=== PATIENT | female | born 1965 | race Caucasian/White ===

== ENCOUNTER 2019-12-05 22:12 | Emergency (ER) | payer SELFPAY ==
[2019-12-05 22:47] LABS: HEMATOCRIT 42.6 % (36.0-47.0); HEMOGLOBIN 14.3 g/dL (12.0-15.5); MEAN CORPUSCULAR HEMOGLOBIN 28.1 pg (27.0-33.4); MEAN CORPUSCULAR HGB CONC 33.6 g/dL (32.0-36.0); MEAN CORPUSCULAR VOLUME 84 fl (80-97); PLATELET COUNT 306 10^3/uL (150-450); RED BLOOD COUNT 5.09 10^6/uL (3.72-5.28); RED CELL DISTRIBUTION WIDTH 14.1 % (11.5-14.0); WHITE BLOOD COUNT 24.4 10^3/uL (4.0-10.5)
[2019-12-05 23:04] LABS: ALBUMIN 3.9 g/dL (3.5-5.0); ALKALINE PHOSPHATASE 100 U/L (38-126); ANION GAP 14 (5-19); ASPARTATE AMINO TRANSFERASE 24 U/L (14-36); BILIRUBIN,DIRECT 0.3 mg/dL (0.0-0.4); BILIRUBIN,TOTAL 0.4 mg/dL (0.2-1.3); BLOOD UREA NITROGEN 16 mg/dL (7-20); CALCIUM 9.5 mg/dL (8.4-10.2); CARBON DIOXIDE 24 mmol/L (22-30); CHLORIDE 99 mmol/L (98-107); CREATINE KINASE 71 U/L (30-135); GLUCOSE 173 mg/dL (75-110); TOTAL PROTEIN 7.2 g/dL (6.3-8.2)
[2019-12-05 23:06] LABS: ABSOLUTE MONOCYTES # (MANUAL) 0.2 10^3/uL (0.1-1.4); ANISOCYTOSIS SLIGHT; BAND NEUTROPHILS % (MANUAL) 1 % (3-5); BASOPHILS % (MANUAL) 0 % (0-2); EOSINOPHILS % (MANUAL) 0 % (0-6); LYMPHOCYTES % (MANUAL) 8 % (13-45); MONOCYTES % (MANUAL) 1 % (3-13); PLATELET COMMENT ADEQUATE; SEGMENTED NEUTROPHILS % (MAN) 90 % (42-78); TOTAL CELLS COUNTED 100
[2019-12-05 23:12] LABS: CREATINE KINASE MB 0.82 ng/mL (<4.55)
[2019-12-05 23:15] LABS: TROPONIN I 0.022 ng/mL
--- NOTE | 2019-12-05 23:52 | RADIOLOGY REPORT (SQ) ---
EXAM DESCRIPTION: CT HEAD WITHOUT IV CONTRAST COMPLETED DATE/TME: 12/05/2019 00:00 CLINICAL HISTORY: 54 years, Female, fall/headache COMPARISON: None. TECHNIQUE: EXAM DESCRIPTION: CLINICAL HISTORY: fall/headache COMPARISON: None Available TECHNIQUE: Contiguous axial CT images of the head were obtained. Coronal and sagittal reconstructions were created from the axial data. This exam was performed according to our departmental dose-optimization program, which includes automated exposure control, adjustment of the mA and/or kV according to patient size and/or use of iterative reconstruction technique. FINDINGS: Moderate mucosal thickening involves the left maxillary sinus, which contains a fluid level. Mildly displaced fracture of the right nasal bone is of indeterminate acuity. Correlation with exam and history is recommended. There is no evidence of acute mass, mass effect, midline shift or hemorrhage. The ventricles and extra-axial CSF spaces are unremarkable. The brain parenchyma appears normal for the patient's age. No other acute abnormalities of the bones is seen. IMPRESSION: Paranasal sinus disease. Probable acute paranasal sinusitis. Right nasal bone fracture. No other acute intracranial abnormality.
[2019-12-06 00:01] LABS: A TYPE INFLUENZA AG NEGATIVE (NEGATIVE); B INFLUENZA AG NEGATIVE (NEGATIVE)
--- NOTE | 2019-12-06 00:14 | ER Document Report ---
Entered by SHANEKA FULTON SCRIBE 12/05/19 [id number] Acting as scribe for:GM LOCK DO ED General - General Chief Complaint: Fainting Stated Complaint: FAINTING Time Seen by Provider: 12/05/19 22:57 Information source: Patient, Relative - Son Notes: 54-year-old female presents with son to the emergency department via EMS after 3 syncope episodes that began 3 hours ago. Patient explained that she has not been feeling well and was diagnosed two weeks ago with the flu at the Urgent Care. Patient stated that she was prescribed Tamiflu but was not able to pay for it so she "just took a week off of work". Patient stated that she went back to work 5 days ago and still was not feeling well. After patient passed out twice, son called EMS. Patient's son said that patient passed out for the third time while he was on the phone with EMS. Patient reports "maybe hitting the cabinet during one of them". Patient describes that she is feeling burning down legs, "the burning sensation goes all the way up to my neck and skin". Patient said that she vomited after third syncope episode. Patient reports cough, congestion, rhinorrhea and vomiting. Patient denies dizziness, dysuria, hematuria and lightheadedness. - Related Data Allergies/Adverse Reactions: No Known Allergies Allergy (Unverified 12/06/19 00:47) Past Medical History - General Information source: Patient, Relative - Son - Social History Smoking Status: Current Every Day Smoker Cigarette use (# per day): Yes Chew tobacco use (# tins/day): No Lives with: Family Family History: Reviewed & Not Pertinent - Medical History Medical History: Negative Past Surgical History: Reports: Hx Oral Surgery - [place] teeth Review of Systems - Review of Systems Constitutional: No symptoms reported EENT: See HPI, Nose congestion, Nose discharge Cardiovascular: See HPI, Syncope. denies: Dizziness, Lightheaded Respiratory: See HPI, Cough Gastrointestinal: See HPI, Vomiting Genitourinary: See HPI. denies: Dysuria, Hematuria Female Genitourinary: No symptoms reported Musculoskeletal: No symptoms reported Skin: No symptoms reported Hematologic/Lymphatic: No symptoms reported Neurological/Psychological: No symptoms reported -: Yes All other systems reviewed and negative Physical Exam - Vital signs Vitals: Resp 21 H 12/05/19 22:25 - Notes Notes: General: Alert, appears well. HEENT: Normocephalic. Atraumatic. PERRL. Extraocular movements intact. Poor dentition. Dry mucous membranes. Erythema in pharynx. Neck: Supple. Non-tender. Respiratory: No respiratory distress. Clear and equal breath sounds bilaterally. Cardiovascular: Tacycardic. Abdominal: Diffusely mild tenderness to palpation. No distension. Normal Bowel Sounds. Obese. Back: No gross abnormalities. Extremities: Moves all four extremities. Upper extremities: Normal inspection. Normal ROM. Lower extremities: Normal inspection. No edema. Normal ROM. Neurological: Normal cognition. AAOx4. Normal speech. Psychological: Normal affect. Normal Mood. Skin: Warm. Dry. Normal color. Course - Re-evaluation Re-evalutation: 12/06/19 03:23 MDM 54 year old with productive cough and febrile illness. Right base looks a bit congested to me but read as normal. Will dispense antibiotics due to productive cough and elevated wbc count with bronchitis vs RLL pneumonia. Discussed smoking cessation and she expressed understanding. Heart rate is into 90's. No fever and lactic repeat is normal. - Vital Signs Vital signs: Temp Pulse Resp BP Pulse Ox 98.6 F 136 H 22 H 101/57 L 98 12/06/19 03:47 12/05/19 22:32 12/06/19 03:47 12/06/19 03:47 12/06/19 03:47 - Laboratory Result Diagrams: 12/05/19 22:34 12/05/19 22:34 Laboratory results interpreted by me: 12/05/19 12/05/19 12/05/19 22:34 22:34 23:53 WBC 24.4 H RDW 14.1 H Seg Neuts % (Manual) 90 H Band Neutrophils % 1 L Lymphocytes % (Manual) 8 L Monocytes % (Manual) 1 L Abs Neuts (Manual) 22.2 H Sodium 136.5 L Glucose 173 H Lactic Acid 2.6 H - Diagnostic Test Radiology reviewed: Image reviewed, Reports reviewed - EKG Interpretation by Me EKG shows normal: Sinus rhythm Rate: Tachycardia Rhythm: NSR - Sinus Tachy Nl axis [address] elevation or depression my interpreation Discharge - Discharge Clinical Impression: CAP (community acquired pneumonia) Qualifiers: Laterality: right Lung location: lower lobe of lung Qualified Code(s): J18.9 - Pneumonia, unspecified organism Condition: Good Disposition: HOME, SELF-CARE Instructions: Cough Suppressant & Expectorant Medications, Dehydration ([facility]), Family Physicians / Practices, Pneumonia ([facility]), Stop Smoking ([facility]) Additional Instructions: Rest, No work 3/3 or 3/4. Stop smoking. Take the antibiotics as directed. Please return here for any problems or any concerns. Your blood sugar was elevated a bit. Have this rechecked. Finish the antibiotics. Prescriptions: Benzonatate [Tessalon Perles 100 mg Capsule] 200 mg PO Q8HP PRN #40 capsule PRN Reason: Cephalexin Monohydrate [Keflex 500 mg Capsule] 500 mg PO TID #30 capsule Ondansetron [Zofran Odt 4 mg Tablet] 1 - 2 tab PO Q4H PRN #15 tab.rapdis PRN Reason: For Nausea/Vomiting Forms: Smoking Cessation Education, Return to Work I personally performed the services described in the documentation, reviewed and edited the documentation which was dictated to the scribe in my presence, and it accurately records my words and actions.
[2019-12-06] MEDS ORDERED: CEFTRIAXONE 1 GM/D5W RTU 1 GM/50 ML RTUPB IV ONE (00:45)
[2019-12-06] MEDS: NORMAL SALINE 1000 ML 1,000 ML IV PRN ×2 (01:02→02:17)
[2019-12-06] MEDS ORDERED: ACETAMINOPHEN 325 MG TABLET PO ONE (01:38)
--- NOTE | 2019-12-06 02:32 | RADIOLOGY REPORT (SQ) ---
EXAM DESCRIPTION: XR CHEST 1 VIEW COMPLETED DATE/TME: 12/06/2019 00:46 CLINICAL HISTORY: 54 years, Female, fever COMPARISON: None. NUMBER OF VIEWS: 1 TECHNIQUE: Portable chest LIMITATIONS: None. FINDINGS: The heart size is normal. Osteopenia. Lungs clear. No pneumothorax IMPRESSION: No acute cardiopulmonary process copyright 2010 [employer]- All Rights Reserved
--- NOTE | 2019-12-06 02:40 | RADIOLOGY REPORT (SQ) ---
EXAM DESCRIPTION: CT ABDOMEN PELVIS WITH IV CONTRAST COMPLETED DATE/TME: 12/06/2019 00:14 CLINICAL HISTORY: Diffuse abdominal pain. COMPARISON: None Available. TECHNIQUE: CT of the abdomen and pelvis performed following IV administration of 100 mL of Omnipaque 350. FINDINGS: Lung Bases: The visualized lung bases are clear. Bones: Mild degenerative endplate spondylosis, facet arthropathy, and degenerative disc height narrowing at the time. Abdomen: Liver: The liver has normal size and density. No intrahepatic mass or biliary dilatation. Gallbladder: No calcified gallstones. Spleen, Pancreas, and Adrenal Glands: The spleen, pancreas, and adrenal glands are unremarkable. Kidneys: The kidneys have normal size without evidence of solid mass or hydronephrosis. Vasculature: Aortoiliac atherosclerosis. IVC is unremarkable. The portal vein is patent. The proximal visceral and renal arteries are patent. Stomach: The stomach and duodenum have normal course. Other: No free intraperitoneal air. Tiny fat-containing umbilical hernia is No free fluid or lymphadenopathy. Pelvis: Bladder: Urinary bladder is unremarkable. Bowel: No dilated loops of large or small bowel. Appendix: Normal appendix. Pelvis: Uterus is not enlarged. IMPRESSION: 1. No acute inflammatory or obstructive process identified. This exam was performed according to our departmental dose-optimization program, which includes automated exposure control, adjustment of the mA and/or kV according to patient size and/or use of iterative reconstruction technique.
[2019-12-06 03:06] LABS: APPEARANCE,URINE CLEAR; BILIRUBIN,URINE NEGATIVE (NEGATIVE); COLOR,URINE YELLOW; GLUCOSE, URINE NEGATIVE (NEGATIVE); KETONES,URINE NEGATIVE (NEGATIVE); LEUKOCYTE ESTERASE,URINE NEGATIVE (NEGATIVE); NITRITE,URINE NEGATIVE (NEGATIVE); PROTEIN,URINE NEGATIVE (NEGATIVE); URINE SPECIFIC GRAVITY 1.032; UROBILINOGEN,URINE NEGATIVE mg/dL (<2.0)
[2019-12-06 03:52] VITALS: BP 101/57
--- NOTE | 2019-12-06 06:49 | EKG REPORT ---
SEVERITY:- BORDERLINE ECG - SINUS TACHYCARDIA PROBABLE LEFT ATRIAL ABNORMALITY : Confirmed by: Shaheen Majano MD 06-Dec-2019 06:48:58
== END 2019-12-06 03:56 | disposition home or self-care (01) ==
LOC: ER 22:12
DX: J18.9 Pneumonia, unspecified organism (principal); R55 Syncope and collapse; R09.81 Nasal congestion; R11.10 Vomiting, unspecified; F17.210 Nicotine dependence, cigarettes, uncomplicated
CPT/HCPCS: 93005; 99284; 96361; 96365; 36415; 87040; 82553; 82550; 83605; 85025; 87077; 80053; 81001; 84484; 87804; 87150 ×26; 71045; 70450; 74177; 93010; J7030; J0696